=== PATIENT | female | born 1970 | race Caucasian/White ===

== ENCOUNTER → 2019-04-11 | Outpatient (CLI) | payer MEDICARE | END | disposition home or self-care (01) | LOC: PCVCCLINIC 14:30 | PROVIDERS: ATTEND Internal Medicine | DX: R00.2 Palpitations (principal); I10 Essential (primary) hypertension; M54.5 Low back pain; G89.29 Other chronic pain; R07.9 Chest pain, unspecified | CPT/HCPCS: 93005; G0463 ==